=== PATIENT | female | born 1950 | race Caucasian/White ===

== ENCOUNTER → 2017-02-08 10:09 | Day surgery (SDC) | payer OTHER ==
[~2017-02-08 10:09] MED LIST: Lidocain 1% EPI 1:100,000 * 30 ML MDV ONE; Sodium Bicarbonate 8.4% SYR* 10 ML SYRINGE ONE
[2017-02-08 12:09] VITALS: BP 121/87
--- NOTE | 2017-02-09 03:07 | OP ---
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 ANESTHESIA: Local only with 1% lidocaine with epinephrine and bicarbonate. PRE-OP DIAGNOSIS: Right middle trigger finger. POST-OP DIAGNOSIS: Right middle trigger finger. OPERATIVE PROCEDURE: Right middle finger A1 miriam release. INDICATIONS: Arcelia is a 66-year-old woman. I had given her a steroid shot for right middle finger trigger finger. The pain had improved, but it was still catching pretty much every time she flexed the finger down. I talked to her about doing another injection versus surgically releasing it. She elected to have the trigger finger surgically released. We did talk about risks and benefits. ESTIMATED BLOOD LOSS: 5 mL. COMPLICATIONS: None. FINDINGS: As expected. DESCRIPTION OF PROCEDURE: Shahnaz was seen in the preoperative holding area and the correct side, site, and procedure were identified. We had a time-out and then I anesthetized the operating area with 1% lidocaine with epinephrine and bicarbonate. The arm was then prepped and draped in the usual fashion. A formal time-out was performed. I then made a 1 cm longitudinal incision over the right middle finger A1 miriam. Dissection was carried down bluntly with the tenotomy scissors releasing the soft tissue overlying the A1 miriam. This was directly visualized and then longitudinally incised with the 15 blade. I extended the release distally and proximally. I then let down the drapes and asked her to do everything she could to try to induce the triggering. We could not induce any triggering. I looked it to be completely released one more time and I decided to release this to be a bit more proximally. Everything looked good, so we irrigated the wound, and the skin was closed with some 4-0 nylon suture. Wound was dressed with Xeroform, 4x4, sterile Webril, and an GWENDOLYN wrap. She was then taken to recovery room in stable condition. [id number]/[facility] #: [id number] [facility] HOSPITALGallito
== END | disposition home or self-care (01) ==
LOC: OREAST 10:09
PROVIDERS: ATTEND Orthopaedic Surgery Hand Surgery
DX: M65.331 Trigger finger, right middle finger (principal)

== ENCOUNTER 2018-05-03 16:32 | Emergency (ER) | payer BC ==
[2018-05-03 16:44] VITALS: BP 121/68
--- NOTE | 2018-05-03 17:18 | UC ---
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 " Patient complained of having a cold 2 weeks ago. States symptoms have resolved. Has had issues with cerumen impaction in the past. Denies fevers chills. Denies any discharge. Denies swimming. It is not painful. - History of Current Complaint Chief Complaint: UCEar Stated Complaint: LEFT EAR HEARING ISSUE Time Seen by Provider: 05/03/18 16:39 Hx Last Menstrual Period: n/a Pain Intensity: 2 - Allergies/Home Medications Allergies/Adverse Reactions: Allergies Allergy/AdvReac Type Severity Reaction Status Date / Time No Known Allergies Allergy Verified 05/03/18 16:40 Home Medications: Home Medications Meclizine TAB* [Antivert 12.5 TAB*] 12.5 mg PO TID PRN 05/03/18 [History Confirmed 05/03/18] Ranitidine TAB (NF) [Zantac TAB (NF)] 300 mg PO DAILY 05/03/18 [History Confirmed 05/03/18] PMH/Surg Hx/FS Hx/Imm Hx Previously Healthy: Yes - Surgical History Surgical History: Yes Surgery Procedure, Year, and Place: shoulder, gallbladder - Family History Known Family History: Positive: Hypertension - Social History Alcohol Use: Rare Substance Use Type: None Smoking Status (MU): Never Smoked Tobacco Review of Systems Constitutional: Negative Skin: Negative Eyes: Negative ENT: Other - Decreased left hearing. Respiratory: Negative Cardiovascular: Negative Gastrointestinal: Negative Genitourinary: Negative Motor: Negative Neurovascular: Negative Musculoskeletal: Negative Neurological: Negative Psychological: Negative Is Patient Immunocompromised?: No All Other Systems Reviewed And Are Negative: Yes Physical Exam Triage Information Reviewed: Yes Appearance: Well-Appearing, No Pain Distress, Well-Nourished - Very pleasant Vital Signs: Initial Vital Signs Temp 98 F 05/03/18 16:38 Pulse 83 05/03/18 16:38 Resp 16 05/03/18 16:38 BP 121/68 05/03/18 16:38 Pulse Ox 98 05/03/18 16:38 Vital Signs Reviewed: Yes Eye Exam: Normal ENT: Positive: Pharynx normal, Other - Decreased hearing on the left. External ears normal. Right canal and TM normal. Left canal shows significant cerumen impaction that is deep. She does admit to using Q-tips. Negative: Nasal congestion Neck exam: Normal Neck: Positive: Supple, Nontender, No Lymphadenopathy Respiratory Exam: Normal Respiratory: Positive: Lungs clear Cardiovascular Exam: Normal Cardiovascular: Positive: RRR Musculoskeletal Exam: Normal Neurological Exam: Normal Psychological Exam: Normal Ear Complaint Course/Dx - Course Course Of Treatment: left ear irrigation in usual fashion w/ good results. TM is clear. Pt feels much better w/ resolution of hearing. - Differential Dx/Diagnosis Differential Diagnosis/HQI/PQRI: Cerumen Impaction, Foreign Body, Mastoiditis, URI Provider Diagnoses: Left cerumen impaction Discharge - Sign-Out/Discharge Documenting (check all that apply): Discharge/Admit/Transfer - Discharge Plan Condition: Stable Disposition: HOME Patient Education Materials: Cerumen Impaction (ED) Referrals: Elana Lennon MD [Primary Care Provider] - If Needed - Billing Disposition and Condition Condition: STABLE Disposition: Home
== END 2018-05-03 17:40 | disposition home or self-care (01) ==
LOC: UCCORT 16:32
DX: H61.22 Impacted cerumen, left ear (principal)
CPT/HCPCS: 99212; G0463

== ENCOUNTER 2018-12-18 07:50 | Emergency (ER) | payer MEDICARE, BC ==
[2018-12-18 08:13] VITALS: BP 118/77
[2018-12-18 08:25] LABS: Influenza A Molecular POSITIVE (Negative)
--- NOTE | 2018-12-18 09:07 | UC ---
FLU HPI - HPI Summary HPI Summary: 68-year-old woman comes in with a chief complaint of fever chills body aches runny nose sore throat cough chest congestion wheezing. Symptoms started about 3 days ago. The chest congestion and wheezing and shortness of breath is gotten worse over the last day. Patient does not have a history of COPD or asthma she is not a smoker. Ibuprofen's been helping with the fevers and the body aches. - History of Current Complaint Chief Complaint: UCRespiratory Stated Complaint: CHEST CONGESTION Time Seen by Provider: 12/18/18 08:57 Hx Last Menstrual Period: n/a Pain Intensity: 0 - Allergy/Home Medications Allergies/Adverse Reactions: Allergies Allergy/AdvReac Type Severity Reaction Status Date / Time No Known Allergies Allergy Verified 12/18/18 08:08 Home Medications: Home Medications Ibuprofen TAB* [Advil TAB*] 800 mg PO Q8H PRN 12/18/18 [History Confirmed ] PMH/Surg Hx/FS Hx/Imm Hx Previously Healthy: Yes GI/ History: Gastroesophageal Reflux - Surgical History Surgical History: Yes Surgery Procedure, Year, and Place: Right Humerus Fracture, 2011, [place]; Cardiac SVT Ablation, ~2008, [facility]; Cholecystectomy, ~1985, [place] - Family History Known Family History: Positive: Hypertension - Social History Alcohol Use: Rare Substance Use Type: None Smoking Status (MU): Never Smoked Tobacco Review of Systems All Other Systems Reviewed And Are Negative: Yes Constitutional: Positive: Fever, Chills Skin: Positive: Negative Eyes: Positive: Negative ENT: Positive: Sore Throat, Nasal Discharge, Sinus Congestion Respiratory: Positive: Shortness Of Breath, Cough, Other - WHEEZING Cardiovascular: Positive: Negative Gastrointestinal: Positive: Negative Motor: Positive: Negative Neurovascular: Positive: Negative Musculoskeletal: Positive: Myalgia Neurological: Positive: Negative Psychological: Positive: Negative Is Patient Immunocompromised?: No Physical Exam Triage Information Reviewed: Yes Appearance: No Pain Distress, Well-Nourished, Ill-Appearing - MILD Vital Signs: Initial Vital Signs Temp 97.8 F 12/18/18 08:06 Pulse 70 12/18/18 08:06 Resp 16 12/18/18 08:06 BP 118/77 12/18/18 08:06 Pulse Ox 99 12/18/18 08:06 Vital Signs Reviewed: Yes Eye Exam: Normal Eyes: Positive: Conjunctiva Clear ENT: Positive: Pharyngeal erythema, Nasal congestion, Nasal drainage, TMs normal Neck exam: Normal Neck: Positive: Supple Respiratory: Positive: No respiratory distress, No accessory muscle use, Wheezing Cardiovascular: Positive: RRR Musculoskeletal Exam: Normal Musculoskeletal: Positive: Strength Intact, ROM Intact, No Edema Neurological Exam: Normal Neurological: Positive: Alert, Muscle Tone Normal Psychological Exam: Normal Psychological: Positive: Normal Response To Family, Age Appropriate Behavior Skin Exam: Normal Flu Course/Dx - Course Course Of Treatment: DISCUSSED VIRAL VERSES BACTERIAL INFECTION AND THE ROLE OF ANTIBIOTICS. THE PATIENT WISHES TO BE ON ANTIBIOTIC AT THIS TIME. We discussed Tamiflu and that it is most efficacious if started within 48 hours of onset of illness. Patient wishes to be on Tamiflu at this time. Patient's concerned about the chest congestion. We discussed viral versus bacterial infections including pneumonias patient wishes to be on an antibiotic at this time. Follow-up with her primary care doctor as needed reevaluate sooner if worse or any questions or concerns. - Differential Dx/Diagnosis Provider Diagnosis: Influenza, Bronchitis Discharge - Sign-Out/Discharge Documenting (check all that apply): Patient Departure All imaging exams completed and their final reports reviewed: No Studies - Discharge Plan Condition: Stable Disposition: HOME Prescriptions: Azithromyxin BHUMIKA (NF) [Z-Bhumika (Zithromax) 250 mg tabs #6] 2 tab PO .TODAY, THEN 1 DAILY #6 tab Oseltamivir CAP* [Tamiflu CAP*] 75 mg PO BID #10 cap Patient Education Materials: Influenza (ED), Acute Bronchitis (ED) Referrals: Libra El MD [Primary Care Provider] - Additional Instructions: FOLLOW UP WITH YOUR DOCTOR IF NOT COMPLETELY IMPROVED. GET RECHECKED FOR ANY WORSENING OF YOUR CONDITION OR QUESTIONS OR CONCERNS. - Billing Disposition and Condition Condition: STABLE Disposition: Home
== END 2018-12-18 09:15 | disposition home or self-care (01) ==
LOC: UCCORT 07:50
DX: J11.1 Influenza due to unidentified influenza virus with other respiratory manifestations (principal); J40 Bronchitis, not specified as acute or chronic
CPT/HCPCS: 99212; G0463